=== PATIENT | female | born 1955 | race Caucasian/White ===

== ENCOUNTER → 2016-10-28 | Outpatient (CLI) | payer OTHER ==
--- NOTE | 2016-10-28 17:53 | MA ---
Screening Digital Mammogram With iCAD, October 28, 2016 Indication: Routine screening. Technique: Standard cephalocaudal and mediolateral oblique projections are obtained. This examinati on is processed by the iCAD computer-aided detection system. Comparison: October 2015, October 2014, September 2013, September 2012, and September 2011. Breast density: Type B. Findings: CAD was reviewed. A small, 6 mm, round partially obscured nodular asymmetry has developed i n the deep upper left breast 12 o'clock position. The right and left mammograms are otherwise negativ e. Impression: New round asymmetry upper left breast - cyst versus nodule. Recommendation: Targeted ultrasound upper left breast. BI-RADS 0: Needs additional imaging evaluation. [facility] will send a result letter to the patient.
== END ==
LOC: FIMAGING 10:14
DX: Z12.31 Encounter for screening mammogram for malignant neoplasm of breast (principal)
CPT/HCPCS: G0202

== ENCOUNTER → 2016-11-06 | Outpatient (CLI) | payer OTHER ==
--- NOTE | 2016-11-06 11:28 | US ---
Left Breast Ultrasound History: New nodule upper left breast Technique: Ultrasound exam with a high frequency linear transducer. Comparison: Screening mammogram October 28, 2016 Findings: At the 12:00 radial, 10 cm from the nipple is a small 4 mm simple cyst in nicely correlates with the mammographic nodule Impression: The mammographic nodule is a small benign cyst. No further imaging is required. BI-RADS 2 benign. Recommendation: Return to screening mammography in one year. Results and recommendation were communicated to the patient at the time of the examination.
== END ==
LOC: FIMAGING 10:55
PROVIDERS: ATTEND Family Medicine
DX: N60.02 Solitary cyst of left breast (principal)

== ENCOUNTER → 2017-11-01 | Outpatient (CLI) | payer OTHER | LOC: FIMAGING 07:24 | PROVIDERS: ATTEND Family Medicine | DX: Z12.31 Encounter for screening mammogram for malignant neoplasm of breast (principal) ==

== ENCOUNTER → 2018-11-02 | Outpatient (CLI) | payer OTHER | LOC: FIMAGING 08:13 | PROVIDERS: ATTEND Family Medicine | DX: Z12.31 Encounter for screening mammogram for malignant neoplasm of breast (principal); Z80.3 Family history of malignant neoplasm of breast ==